=== PATIENT | female | born 1955 | race Caucasian/White ===

== ENCOUNTER 2016-02-29 00:04 | Emergency (ER) | payer OTHER ==
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
[2016-02-29] MEDS: HYDROcodone /APAP 5/325 1 EACH TABLET PO ONE ×2 (00:25→01:10)
[2016-02-29 01:25] VITALS: BP 132/58
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
== END 2016-02-29 01:10 | disposition home or self-care (01) ==
LOC: ED 00:04
DX: S16.1XXA Strain of muscle, fascia and tendon at neck level, initial encounter (principal); V87.7XXA Person injured in collision between other specified motor vehicles (traffic), initial encounter; Y93.9 Activity, unspecified; Y99.9 Unspecified external cause status
CPT/HCPCS: 72125; 72128; 99282; 99283; A9270-GY

== ENCOUNTER 2016-12-28 07:04 | Outpatient (CLI) | payer OTHER ==
[2016-12-28 07:54] LABS: eGFR (African) > 60; eGFR (Non-African) > 60
== END 2016-12-28 07:05 ==
LOC: LAB 07:04
PROVIDERS: ATTEND Family Medicine
DX: E78.2 Mixed hyperlipidemia (principal); E03.9 Hypothyroidism, unspecified
CPT/HCPCS: 36415; 80053; 80061; 84443

== ENCOUNTER 2018-01-07 21:00 | Emergency (ER) | payer OTHER ==
--- NOTE | 2018-01-07 21:14 | ED Physician Documentation ---
General Adult - HISTORIAN Historian: patient - HPI Stated Complaint: low back pain after moving Chief Complaint: Low Back Pain/ Injury Onset: days ago (2) Timing: still present Severity: mild Further Comments: yes (she states she has been moving for two days. She states that she has had back pain (low) and she has had increasing pain on the right side. She denies any specific injury. No loss of control of bowel or bladder . She states she has mild relief with Ibuprofen a heating pad and Icy hot patch.) - ROS CONST: no problems NEURO/PSYCH: denies: headache - PAST HX Past History: CHF Immunizations: UTD Allergies/Adverse Reactions: Allergies Allergy/AdvReac Type Severity Reaction Status Date / Time No Known Drug Allergies Allergy Verified 01/07/18 21:19 Home Medications: Ambulatory Orders Medication Instructions Recorded Furosemide [Lasix] 80 mg PO BID 01/07/18 - SOCIAL HX Smoking History: cigarettes Alcohol Use: none Drug Use: none - FAMILY HX Family History: No - VITAL SIGNS Vital Signs: Vital Signs Temp Pulse Resp BP Pulse Ox 132/58 02/29/16 01:10 - REVIEWED ASSESSMENTS Nursing Assessment Reviewed: Yes Vitals Reviewed: Yes ED Results Lab/Radiology - Radiology Radiology Impressions: Three-view lumbar spine Clinical history: Low back pain after moving heavy furniture. Findings: Examination lumbar spine AP, lateral and lateral coned-down views demonstrates accentuation of the normal lumbar lordosis. Degenerative facet changes are seen throughout. There is no evident fracture. The pedicles are intact and the paravertebral soft tissues are within normal limits. Impression: 1. Accentuated lumbar lordosis. 2. Spondylosis. Electronically signed on Jan 07, 2018 9:50:19 PM ICE PULLER by: Rick [facility] Adult Physical Exam - PHYSICAL EXAM GENERAL APPEARANCE: no distress EENT: eye inspection normal, no signs of dehydration NECK: normal inspection RESPIRATORY: no resp distress, chest non-tender, breath sounds normal CVS: reg rate & rhythm, heart sounds normal ABDOMEN: soft, no distension BACK: normal inspection, other (right lower back - pain with palpation FROM of hip and leg. She is able to stand and lay with no restrictions ) SKIN: warm/dry, normal color EXTREMITIES: non-tender, normal range of motion, no edema NEURO: oriented X3, CN's nml as tested Discharge Clincal Impression: Low back pain Qualifiers: Chronicity: acute Back pain laterality: right Sciatica presence: without sciatica Qualified Code(s): M54.5 - Low back pain Referrals: Farhana Miramontes MD [Primary Care Provider] - 2 Days Comments: 1. Cyclobenzaprine 10 mg take 1 by mouth every 12 hours as needed for pain 2. Ibuprofen 800 mg take 1 by mouth twice a day for pain 3. Ice/heat as comfort allows 4. Follow up with PCP in 204 days 5. Return to ER for any concerns Condition: Stable Disposition: 01 HOME, SELF-CARE Decision to Admit: NO Date of Decison to Admit: 01/07/18 Decision Time: 21:52
[2018-01-07 21:19] VITALS: BP 145/64
[2018-01-07] MEDS ORDERED: ORPHENADRINE CITRATE 60 MG/2ML IM ONE (21:19)
[2018-01-07] MEDS ORDERED: KETOROLAC TROMETHAMINE 60 MG/2 ML VIAL IM ONE (21:19)
[2018-01-07] MEDS ORDERED: methylPREDNISolone ACETATE 40 MG/ML VIAL IM ONE (21:19)
--- NOTE | 2018-01-08 06:39 | Diagnostic Imaging Report ---
RICHIE HAIRSTON [facility] [id number] [facility] [address] [id number] Report Submission Date: Jan 07, 2018 9:50:19 PM ACUTE CARE ASSISTANT Patient Study Name: JARETH HANNAH Date: Jan 07, 2018 9:21:52 PM ACUTE CARE ASSISTANT Modality Type: DX Gender: F Description: SPINE : 53 Institution: [facility] Physician: RICHIE HAIRSTON Three-view lumbar spine Clinical history: Low back pain after moving heavy furniture. Findings: Examination lumbar spine AP, lateral and lateral coned-down views demonstrates accentuation of the normal lumbar lordosis. Degenerative facet changes are seen throughout. There is no evident fracture. The pedicles are intact and the paravertebral soft tissues are within normal limits. Impression: 1. Accentuated lumbar lordosis. 2. Spondylosis. Electronically signed on Jan 07, 2018 9:50:19 PM ACUTE CARE ASSISTANT by: Rick WILCOX
== END 2018-01-07 22:00 | disposition home or self-care (01) ==
LOC: ED 21:00
DX: M54.5 Low back pain (principal)
CPT/HCPCS: 72100; 96372; 99282; 99283; J1030; J1885; J2360